=== PATIENT | female | born 1940 | race Caucasian/White ===

== ENCOUNTER 2017-07-23 19:39 | Emergency (ER) | payer MEDICARE, OTHER ==
[2017-07-23] MEDS: NICARDipine HCL 30 MG CAPSULE PO (21:40)
[2017-07-23] MEDS: MECLIZINE 12.5 MG TAB PO (21:40)
== END 2017-07-23 23:01 | disposition home or self-care (01) ==
LOC: E/R 19:39
DX: R42 Dizziness and giddiness (principal); I10 Essential (primary) hypertension
CPT/HCPCS: 82962; 93005; 99283-25

== ENCOUNTER 2018-05-25 06:29 | Emergency (ER) | payer MEDICARE, OTHER ==
[2018-05-25] MEDS: ONDANSETRON 4 MG INJ IV (07:22)
[2018-05-25] MEDS: HYDROmorphONE 1 MG/ML SYG IV (07:23)
[2018-05-25 07:36] LABS: ADD MAN DIFF? NO
[2018-05-25 07:38] LABS: BASOPHILS % 0.4 % (0.0-2.0); EOSINOPHILS % 0.4 % (0.0-7.0); HEMATOCRIT 34.2 % (37.0-47.0); HEMOGLOBIN 11.4 g/dl (12.0-16.0); LYMPHOCYTES # 0.8 10^3/ul (0.8-2.9); LYMPHOCYTES % 16.8 % (15.0-51.0); MEAN CORPUSCULAR HEMOGLOBIN 30.6 pg (29.0-33.0); MEAN CORPUSCULAR HGB CONC 33.3 g/dl (32.0-37.0); MEAN CORPUSCULAR VOLUME 91.7 fl (82.0-101.0); MEAN PLATELET VOLUME 9.2 fl (7.4-10.4); MONOCYTE # 0.3 10^3/ul (0.3-0.9); MONOCYTES % 5.6 % (0.0-11.0); NEUTROPHIL # 3.8 10^3/ul (1.6-7.5); NEUTROPHILS % 76.6 % (39.0-77.0); PLATELET COUNT 125 10^3/UL (140-415); RED BLOOD COUNT 3.73 10^6/ul (4.20-5.40)
[2018-05-25 07:54] LABS: ALANINE AMINOTRANSFERASE 23 IU/L (13-69); ALBUMIN 3.8 g/dl (3.3-4.9); ALBUMIN/GLOBULIN RATIO 1.26; ALKALINE PHOSPHATASE 79 IU/L (42-121); ANION GAP 11 (5-13); ASPARTATE AMINO TRANSFERASE 21 IU/L (15-46); BILIRUBIN,INDIRECT 0.4 mg/dl (0-1.1); BILIRUBIN,TOTAL 0.4 mg/dl (0.2-1.3); BLOOD UREA NITROGEN 16 mg/dl (7-20); CALCIUM 8.8 mg/dl (8.4-10.2); CARBON DIOXIDE 25 mmol/L (21-31); CHLORIDE 106 mmol/L (97-110); CREATININE 0.59 mg/dl (0.44-1.00); GLUCOSE 112 mg/dl (70-220); LIPASE 67 U/L (23-300); POTASSIUM 3.7 mmol/L (3.5-5.1); SODIUM 142 mmol/L (135-144); TOTAL PROTEIN 6.8 g/dl (6.1-8.1)
== END 2018-05-25 09:19 | disposition home or self-care (01) ==
LOC: E/R 06:29
DX: K80.20 Calculus of gallbladder without cholecystitis without obstruction (principal); I10 Essential (primary) hypertension
CPT/HCPCS: 76705; 80053; 83690; 85025; 96374; 96375; 99285-25

== ENCOUNTER 2018-08-01 07:37 | Day surgery (SDC) | payer MEDICARE, OTHER ==
[2018-08-01] MEDS ORDERED: CEFAZOLIN 2 GM/50 ML (PMX) 50 ML IVPB (08:30)
[2018-08-01] MEDS: SOD CHLORIDE 0.9% 1,000 ML IV (09:26)
[2018-08-01] MEDS ORDERED: ROPIVACAINE 0.5 % 30 ML VIAL (10:48)
[2018-08-01] MEDS ORDERED: PROPOFOL 20 ML (11:10)
[2018-08-01] MEDS ORDERED: SUCCINYLCHOLINE CHLORIDE 100 MG/5 ML SYG IV (11:10)
[2018-08-01] MEDS ORDERED: LIDOCAINE 2% (SDV) 5 ML INJ (11:10)
[2018-08-01] MEDS ORDERED: ROCURONIUM 50 MG INJ (11:10)
[2018-08-01] MEDS ORDERED: FENTAnyl 50 MCG/ML VIAL (11:12)
[2018-08-01] MEDS ORDERED: DEXAMETHASONE 4 MG/ML 5 ML INJ (11:39)
[2018-08-01] MEDS ORDERED: FAMOTIDINE 20 MG INJ (11:39)
[2018-08-01] MEDS ORDERED: ONDANSETRON 4 MG INJ (11:39)
[2018-08-01] MEDS: BUPIVACAINE 0.25% (MPF) 30 ML INJ (11:51)
[2018-08-01] MEDS ORDERED: hydrALAzine 20 MG INJ (11:54)
[2018-08-01] MEDS ORDERED: PROCHLORPERAZINE 10 MG INJ IV (12:00)
[2018-08-01] MEDS ORDERED: HYDROmorphONE 1 MG/5 ML IV SYRINGE IV ×2 (12:00)
[2018-08-01] MEDS ORDERED: DIPHENHYDRAMINE 50 MG INJ IV (12:00)
[2018-08-01] MEDS ORDERED: OXYCODONE/ACETAMINOPHEN (5/325) TAB PO (12:00)
[2018-08-01] MEDS ORDERED: FENTAnyl 50 MCG/ML VIAL IV (12:00)
[2018-08-01] MEDS ORDERED: ONDANSETRON 4 MG INJ IV ×2 (12:00→13:00)
[2018-08-01] MEDS ORDERED: MEPERIDINE 25 MG INJ IV (12:00)
[2018-08-01] MEDS ORDERED: NEOSTIGMINE 10 MG INJ (12:24)
[2018-08-01] MEDS ORDERED: GLYCOPYRROLATE 0.4 MG INJ ×2 (12:24→12:31)
[2018-08-01] MEDS ORDERED: LABETALOL HCL 20MG INJ IV (12:30)
[2018-08-01] MEDS ORDERED: hydrALAzine 20 MG INJ IV (12:30)
[2018-08-01] MEDS ORDERED: ESMOLOL 10 ML (12:38)
[2018-08-01] MEDS ORDERED: morphine 2 MG INJ IV (13:00)
[2018-08-01] MEDS ORDERED: HYDROCODONE/APAP (5/325) TAB PO ×2 (13:00)
== END 2018-08-01 15:00 | disposition home or self-care (01) ==
LOC: SDS 07:37
DX: K80.10 Calculus of gallbladder with chronic cholecystitis without obstruction (principal); I10 Essential (primary) hypertension; M06.9 Rheumatoid arthritis, unspecified; E66.9 Obesity, unspecified; Z68.33 Body mass index [BMI] 33.0-33.9, adult
CPT/HCPCS: 47562; 88304